=== PATIENT | female | born 1995 | race Asian ===

== ENCOUNTER 2021-09-13 00:22 | Emergency (ER) | payer SELFPAY ==
--- NOTE | 2021-09-13 01:42 | EDM.PDOC ---
ED HPI GENERAL MEDICAL PROBLEM - General Chief Complaint: General Stated Complaint: COVID POS, SYMPTOMS NOT IMPROVING Time Seen by Provider: 09/13/21 00:46 Source of Information: Reports: Patient History Limitations: Reports: No Limitations - History of Present Illness INITIAL COMMENTS - FREE TEXT/NARRATIVE: 26-year-old female presents for persistent Covid symptoms. Patient was diagnosed with Covid 9 days ago. She notes that she initially had mild symptoms, cough, body aches. She notes over the last 2 days symptoms of worsened. She notes shortness of breath, burning sensation of her eyes and ears, decreased appetite, cough. She is unvaccinated and has not taken any medications other than [id number] Tylenol Motrin and Mucinex. Headache Pain Score (Numeric/FACES): 6 - Related Data Allergies Allergy/AdvReac Type Severity Reaction Status Date / Time No Known Allergies Allergy Verified 09/13/21 01:29 Home Meds: Home Meds . [No Known Home Meds] 09/13/21 [History] Past Medical History - Infectious Disease History Infectious Disease History: Reports: Novel Coronavirus Social & Family History - Tobacco Use Tobacco Use Status *Q: Never Tobacco User - Caffeine Use Caffeine Use: Reports: Coffee - Recreational Drug Use Recreational Drug Use: No ED ROS GENERAL - Review of Systems Review Of Systems: Comprehensive ROS is negative, except as noted in HPI. ED EXAM, GENERAL - Physical Exam Exam: See Below Exam Limited By: No Limitations General Appearance: Alert, WD/WN, No Apparent Distress Ears: Hearing Grossly Normal Throat/Mouth: Normal Voice, No Airway Compromise Head: Atraumatic, Normocephalic Respiratory/Chest: No Respiratory Distress, Lungs Clear, Normal Breath Sounds, No Accessory Muscle Use Cardiovascular: Normal Peripheral Pulses, Regular Rate, Rhythm Back Exam: Normal Inspection Extremities: Normal Inspection Neurological: Alert, Normal Cognition, Normal Gait Psychiatric: Normal Affect, Normal Mood Skin Exam: Warm, Dry, Intact, Normal Color Course - Vital Signs Last Recorded V/S: Last Vital Signs Temp 98.0 F 09/13/21 01:29 Pulse 77 09/13/21 01:29 Resp 16 09/13/21 01:29 BP 116/48 L 09/13/21 01:29 Pulse Ox 98 09/13/21 01:29 - Orders/Labs/Meds Orders: Active Orders 24 hr Category Date Time Status Chest 1V Frontal [CR] Stat Exams 12/26/21 01:40 Taken - Re-Assessments/Exams Free Text/Narrative Re-Assessment/Exam: 09/13/21 01:42 Patient would like work-up to be as limited as possible as she does not have medical insurance in [place]. Will get chest x-ray to assess for Covid pneumonia. Departure - Departure Time of Disposition: 02:04 Disposition: Home, Self-Care 01 Condition: Good Clinical Impression: COVID-19 - Discharge Information Instructions: COVID-19: What to Do If You Are Sick- [facility] (12/03/2020) Referrals: PCP,Not In Area [Primary Care Provider] - Forms: ED Department Discharge Additional Instructions: Your chest x-ray does not show any signs of Covid pneumonia. Your vital signs are all normal. Your oxygen saturations 98% on room air. Your heart rate is within normal range. Given these findings it is unlikely that you will progressed to severe Covid. Unfortunately with Covid things can change quickly so if you are having worsening symptoms we always recommend getting assessed by physician. That being said you are on day 9, and it is typical to feel worse between days 7 and 14. You will likely continue to improve over the next several days. Unfortunately there is no specific medications to treat Covid infection. The FDA did recently approve an oral pill, however, it is not widely available at this time and it is only very effective if given within the first 5 days of infection based on preliminary research. In lieu of specific medications I would recommend taking Motrin (ibuprofen) 600mg every 6 hours in addition to tylenol (acetaminophen, paracetamol) 1000mg every 6 hours to help with fever and body aches. You can either take these together or alternate them every 3 hours. Stay super hydrated, drink water throughout the day. Once you have fully recovered I would suggest getting the Covid vaccination. The following information is given to patients seen in the emergency department who are being discharged to home. This information is to outline your options for follow-up care. We provide all patients seen in our emergency department with a follow-up referral. The need for follow-up, as well as the timing and circumstances, are variable depending upon the specifics of your emergency department visit. If you don't have a primary care physician on staff, we will provide you with a referral. We always advise you to contact your personal physician following an emergency department visit to inform them of the circumstance of the visit and for follow-up with them and/or the need for any referrals to a consulting specialist. The emergency department will also refer you to a specialist when appropriate. This referral assures that you have the opportunity for follow-up care with a specialist. All of these measure are taken in an effort to provide you with optimal care, which includes your follow-up. Under all circumstances we always encourage you to contact your private physician who remains a resource for coordinating your care. When calling for follow-up care, please make the office aware that this follow-up is from your recent emergency room visit. If for any reason you are refused follow-up, please contact the [facility] Emergency Department at and asked to speak to the emergency department charge nurse. Please follow up with your primary care physician. If you do not have a primary care physician, see below: [facility] [address] [place] [id number] [facility] [address] [place] [id number] [facility] [address] [place] [id number] Sepsis Event Note (ED) - Evaluation Sepsis Screening Result: No Definite Risk - Focused Exam Vital Signs: Vital Signs Temp Pulse Resp BP Pulse Ox 09/13/21 01:29 98.0 F 77 16 116/48 L 98 - My Orders Last 24 Hours: My Active Orders 09/13/21 01:40 Chest 1V Frontal [CR] Stat - Assessment/Plan Last 24 Hours: My Active Orders 09/13/21 01:40 Chest 1V Frontal [CR] Stat
--- NOTE | 2021-09-13 02:05 | CR ---
INDICATION: COVID TECHNIQUE: Portable upright AP view of the chest COMPARISON: None FINDINGS: The lungs are clear. There is no appreciable pleural effusion or pneumothorax. The cardiomediastinal silhouette is normal. The visualized osseous structures are unremarkable. IMPRESSION: No radiographic evidence of pneumonia. Dictated by Juan Pablo Cole MD @ 09/13/2021 2:04:22 AM (Electronically Signed)
== END 2021-09-13 02:14 | disposition home or self-care (01) ==
LOC: MW.ED 00:22
DX: U07.1 COVID-19 (principal)
CPT/HCPCS: 71045; 71045-26; 99283-25; 99285